=== PATIENT | female | born 1990 | race Caucasian/White ===

== ENCOUNTER 2019-10-23 13:18 | Emergency (ER) | payer MEDICAID ==
[~2019-10-23] VITALS: Ht 149.9 cm; Wt 47.2 kg
[2019-10-23 13:27] VITALS: Ht 149.9 cm; Wt 47.2 kg
[2019-10-23 16:12] VITALS: BP 105/78
== END 2019-10-23 16:12 | disposition home or self-care (01) ==
LOC: ED 13:18
DX: J06.9 Acute upper respiratory infection, unspecified (principal)
CPT/HCPCS: J1100; Q0092